=== PATIENT | female | born 1995 ===

== ENCOUNTER 2018-09-18 20:10 | Emergency (ER) | payer BC ==
[2018-09-18] MEDS ORDERED: Albuterol/Ipratropium 3.0-0.5 MG/3 ML Neb Soln NEB ONE (20:52)
[2018-09-18] MEDS ORDERED: Levofloxacin 500 MG Tab PO ONE (21:16)
[2018-09-18] MEDS ORDERED: predniSONE 20 MG Tab PO ONE (21:17)
--- NOTE | 2018-09-18 21:20 | EDM.PDOC ---
ED HPI GENERAL MEDICAL PROBLEM - General Chief Complaint: Respiratory Problem Stated Complaint: CHEST COLD Time Seen by Provider: 09/18/18 21:17 Source of Information: Reports: Patient - History of Present Illness INITIAL COMMENTS - FREE TEXT/NARRATIVE: HISTORY AND PHYSICAL: History of present illness: [Patient presents with 24 hours cough Chest secondary complaint of sinus tenderness or throat/cold symptoms for 1 week No fever nausea vomiting chills sweats no chest pain shortness breath dizziness palpitation no bowel or urine symptoms ] Review of systems: As per history of present illness and below otherwise all systems reviewed and negative. Past medical history: As per history of present illness and as reviewed below otherwise noncontributory. Surgical history: As per history of present illness and as reviewed below otherwise noncontributory. Social history: No reported history of drug or alcohol abuse. Family history: As per history of present illness and as reviewed below otherwise noncontributory. Physical exam: HEENT: Atraumatic, normocephalic, pupils reactive, negative for conjunctival pallor or scleral icterus, mucous membranes moist, throat clear, neck supple, nontender, trachea midline. Tender on supraorbital and maxillary sinuses right greater than left, mild erythema of oropharynx with postnasal drip noted, copious nasal discharge on the right no meningeal signs Lungs: Clear to auscultation, breath sounds equal bilaterally, chest nontender. Heart: S1S2, regular, negative for clicks, rubs, or JVD. Abdomen: Soft, nondistended, nontender. Negative for masses or hepatosplenomegaly. Negative for costovertebral tenderness. Pelvis: Stable nontender. Genitourinary: Deferred. Rectal: Deferred. Extremities: Atraumatic, negative for cords or calf pain. Neurovascular unremarkable. Neuro: Awake, alert, oriented. Cranial nerves II through XII unremarkable. Cerebellum unremarkable. Motor and sensory unremarkable throughout. Exam nonfocal. Diagnostics: [Chest 1 view ] Therapeutics: [DuoNeb Levaquin Prednisone Albuterol neb ] Impression: [ pansinusitis Bronchitis Chronic history of baseline] Definitive disposition and diagnosis as appropriate pending reevaluation and review of above. 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: Musculoskeletal History: Reports: None Neurological History: Reports: None Psychiatric History: Reports: Anxiety Endocrine/Metabolic History: Reports: None Hematologic History: Reports: None Dermatologic History: Reports: None - Infectious Disease History Infectious Disease History: Reports: None - Past Surgical History Cardiovascular Surgical History: Reports: None GI Surgical History: Reports: Cholecystectomy Female Surgical History: Reports: D&C Social & Family History - Family History Family Medical History: Noncontributory - Tobacco Use Smoking Status *Q: Current Every Day Smoker Years of Tobacco use: 10 Packs/Tins Daily: 1 - Recreational Drug Use Recreational Drug Use: No ED ROS GENERAL - Review of Systems Review Of Systems: See Below ED EXAM, GENERAL - Physical Exam Exam: See Below Course - Vital Signs Last Recorded V/S: Last Vital Signs Temp 98.4 F 09/18/18 20:21 Pulse 94 09/18/18 20:21 Resp 18 09/18/18 20:21 BP 139/82 09/18/18 20:21 Pulse Ox 98 09/18/18 20:21 - Orders/Labs/Meds Orders: Active Orders 24 hr Category Date Time Status RT Aerosol Therapy [RC] ASDIRECTED Care 09/18/18 20:52 Active Chest 1V Frontal [CR] Stat Exams 09/18/18 20:37 Taken predniSONE Med 09/18/18 21:17 Once 20 mg PO ONETIME ONE Medication Orders Prednisone (Prednisone) 20 mg PO ONETIME ONE Stop: 09/18/18 21:18 Labs: Laboratory Tests 09/18/18 Range/Units 20:39 Urine HCG, Qual NEGATIVE (NEGATIVE) Meds: Medications Generic Name Dose Route Start Last Admin Trade Name Freq PRN Reason Stop Dose Admin Prednisone 20 mg 09/18/18 21:17 Prednisone PO 09/18/18 21:18 ONETIME ONE Discontinued Medications Generic Name Dose Route Start Last Admin Trade Name Freq PRN Reason Stop Dose Admin Albuterol/Ipratropium 3 ml 09/18/18 20:52 09/18/18 21:07 Duoneb 3.0-0.5 Mg/3 Ml NEB 09/18/18 20:53 3 ml ONETIME ONE Administration Levofloxacin 500 mg 09/18/18 21:16 Levaquin PO 09/18/18 21:17 ONETIME ONE Departure - Departure Time of Disposition: 21:19 Disposition: Home, Self-Care 01 Condition: Good Clinical Impression: Sinusitis, Bronchitis - Discharge Information Referrals: Fransisca Stout, FAMILY INDEPENDENCE CASE MANAGER [Primary Care Provider] - Additional Instructions: The following information is given to patients seen in the emergency department who are being discharged to home. This information is to outline your options for follow-up care. We provide all patients seen in our emergency department with a follow-up referral. The need for follow-up, as well as the timing and circumstances, are variable depending upon the specifics of your emergency department visit. If you don't have a primary care physician on staff, we will provide you with a referral. We always advise you to contact your personal physician following an emergency department visit to inform them of the circumstance of the visit and for follow-up with them and/or the need for any referrals to a consulting specialist. The emergency department will also refer you to a specialist when appropriate. This referral assures that you have the opportunity for follow-up care with a specialist. All of these measure are taken in an effort to provide you with optimal care, which includes your follow-up. Under all circumstances we always encourage you to contact your private physician who remains a resource for coordinating your care. When calling for follow-up care, please make the office aware that this follow-up is from your recent emergency room visit. If for any reason you are refused follow-up, please contact the [facility] emergency department at and asked to speak to the emergency department charge nurse. - My Orders Last 24 Hours: My Active Orders 09/18/18 20:37 Chest 1V Frontal [CR] Stat 09/18/18 20:52 RT Aerosol Therapy [RC] ASDIRECTED 09/18/18 21:17 predniSONE 20 mg PO ONETIME ONE - Assessment/Plan Last 24 Hours: My Active Orders 09/18/18 20:37 Chest 1V Frontal [CR] Stat 09/18/18 20:52 RT Aerosol Therapy [RC] ASDIRECTED 09/18/18 21:17 predniSONE 20 mg PO ONETIME ONE
--- NOTE | 2018-09-18 21:40 | CR ---
INDICATION: Cough. TECHNIQUE: Single-view chest. FINDINGS: Small bronchovascular marking on end or small nodule projected in the left mid to lower lung overlying the heart. Lungs otherwise clear without infiltrate. Rather shallow inspiration. Heart size normal. Chest otherwise negative without acute disease. Dictated by Ismael Ley MD @ Sep 18 2018 9:38PM Signed by Dr. Ismael Ley @ Sep 18 2018 9:39PM
== END 2018-09-18 21:30 | disposition home or self-care (01) ==
LOC: MW.ED 20:10
DX: J40 Bronchitis, not specified as acute or chronic (principal); J32.4 Chronic pansinusitis; F41.9 Anxiety disorder, unspecified; F17.210 Nicotine dependence, cigarettes, uncomplicated; Z91.011 Allergy to milk products; Z79.899 Other long term (current) drug therapy
CPT/HCPCS: 71045; 81025; 94640; 99284; A9270; J7620-GY